=== PATIENT | female | born 1960 | race Caucasian/White ===

== ENCOUNTER → 2019-06-26 | Emergency (ER) | payer MEDICARE, MEDICAID ==
[~2019-06-26] VITALS: Ht 165.1 cm; Wt 81.6 kg
[~2019-06-26] MED LIST: KETOROLAC TROMETH 30 MG/ML 1ML VIAL IV ONE; SODIUM CHLORIDE 0.9% 1,000 ML IV ONE
[2019-06-26 09:05] VITALS: BP 147/78
[2019-06-26 09:53] LABS: Basophils # (auto) 0.1 10 ^3/uL (0-0.2); Basophils % (auto) 0.8 % (0.0-2.0); Eosinophils # (auto) 0.4 10 ^3/uL (0-0.8); Eosinophils % (auto) 3.8 % (0.0-7.0); Hematocrit 45.3 % (36.0-46.0); Hemoglobin 15.2 g/dL (12.2-16.2); Lymphocytes # (auto) 2.2 10 ^3/uL (0.4-5.4); Lymphocytes % (auto) 21.8 % (10.0-50.0); Mean Corpuscular Hemoglobin 31.1 pg (28.0-32.0); Mean Corpuscular Hgb Conc. 33.5 g/dL (32.0-36.0); Mean Corpuscular Volume 92.8 fL (80.0-100.0); Monocytes # (auto) 0.7 10 ^3/uL (0-1.3); Monocytes % (auto) 7.2 % (0.0-12.0); Neutrophils # (auto) 6.6 10 ^3/uL (1.6-8.6); Neutrophils % (auto) 66.4 % (37.0-80.0); Platelet Count (auto) 251 10^3/uL (140-450); Red Blood Cells 4.88 10^6/uL (4.0-5.20); Red Cell Distribution Width 13.6 % (11.8-14.3); White Blood Cell 9.9 10^3/uL (4.4-10.8)
[2019-06-26 10:05] LABS: Albumin 3.5 g/dL (3.4-5.0); Calcium 9.1 mg/dL (8.5-10.1); Potassium 3.9 mmol/L (3.5-5.1)
[2019-06-26 10:09] LABS: BUN/Creatinine Ratio 22.5; Bilirubin, Total 0.4 mg/dL (0.2-1.0); Total Protein 7.9 g/dL (6.4-8.2)
[2019-06-26 10:29] LABS: Urine Bacteria NONE SEEN /hpf (None Seen); Urine Blood Negative /uL (Negative); Urine Specific Gravity 1.023 (1.001-1.035); Urine WBC 1 /hpf (0 - 5)
== END | disposition home or self-care (01) ==
LOC: ER 08:46
DX: I80.3 Phlebitis and thrombophlebitis of lower extremities, unspecified (principal); J44.9 Chronic obstructive pulmonary disease, unspecified; I25.2 Old myocardial infarction; F17.210 Nicotine dependence, cigarettes, uncomplicated; Z90.49 Acquired absence of other specified parts of digestive tract; Z90.710 Acquired absence of both cervix and uterus
CPT/HCPCS: 36415; 71046; 80053; 81001; 83735; 85025; 93005; 93971; 96374; 99285; J1885

== ENCOUNTER 2022-01-28 04:01 | Inpatient (IN) | payer OTHER, MEDICAID ==
[~2022-01-28] VITALS: Ht 165.1 cm; Wt 86.1 kg
[2022-01-28] MEDS ORDERED: NITROGLYCERIN 0.4 MG SL TAB SL ONE ×2 (04:15→05:00)
[2022-01-28] MEDS ORDERED: SODIUM CHLORIDE 0.9% 1,000 ML IV ONE (04:15)
[2022-01-28] MEDS ORDERED: HEPARIN SODIUM (PORCINE) 5000 UNITS/ML 1ML VIAL IV ONE (04:30)
[2022-01-28] MEDS ORDERED: CLOPIDOGREL BISULFATE 75 MG TAB PO ONE (04:30)
[2022-01-28] MEDS ORDERED: ATROPINE SULF 1 MG/10ml SYR IV ONE (04:30)
[2022-01-28 04:39] LABS: Basophils # (auto) 0.1 10 ^3/uL (0-0.2); Basophils % (auto) 0.8 % (0.0-2.0); Eosinophils # (auto) 0.7 10 ^3/uL (0-0.8); Eosinophils % (auto) 4.9 % (0.0-7.0); Hematocrit 46.7 % (36.0-46.0); Hemoglobin 15.2 g/dL (12.2-16.2); Lymphocytes # (auto) 6.2 10 ^3/uL (0.4-5.4); Lymphocytes % (auto) 45.1 % (10.0-50.0); Mean Corpuscular Hgb Conc. 32.4 g/dL (32.0-36.0); Mean Corpuscular Volume 92.4 fL (80.0-100.0); Monocytes # (auto) 1.1 10 ^3/uL (0-1.3); Monocytes % (auto) 8.2 % (0.0-12.0); Neutrophils # (auto) 5.6 10 ^3/uL (1.6-8.6); Red Blood Cells 5.06 10^6/uL (4.0-5.20); Red Cell Distribution Width 13.6 % (11.8-14.3); White Blood Cell 13.7 10^3/uL (4.4-10.8)
[2022-01-28] MEDS ORDERED: MORPHINE SULFATE INJ 2 MG/ml SYRG ONE (04:39)
[2022-01-28] MEDS ORDERED: ONDANSETRON HCL 4 MG/2 ML VIAL ONE (04:39)
[2022-01-28] MEDS ORDERED: ONDANSETRON HCL 4 MG/2 ML VIAL IV ONE (04:45)
[2022-01-28] MEDS ORDERED: MORPHINE SULFATE INJ 2 MG/ml SYRG IV ONE (04:45)
[2022-01-28 04:59] LABS: Albumin 3.6 g/dL (3.4-5.0); Calcium 9.3 mg/dL (8.5-10.1)
[2022-01-28 05:03] LABS: BUN/Creatinine Ratio 18.4; Bilirubin, Total 0.4 mg/dL (0.2-1.0); Total Protein 7.7 g/dL (6.4-8.2)
[2022-01-28] MEDS ORDERED: LIDOCAINE 2%HCL (LOCAL ANESTH.) INJ 10ml MDV ONE (05:07)
[2022-01-28] MEDS ORDERED: IOHEXOL 350 MG/ML 100ML IJ ONE ×3 (05:07→06:09)
[2022-01-28] MEDS ORDERED: fentaNYL CITRATE 100 MCG/2 ML VL ONE (05:21)
[2022-01-28] MEDS ORDERED: ANGIOMAX 250 MG VIAL IV ONE (05:21)
[2022-01-28] MEDS ORDERED: SODIUM CHL 0.9% 50 ML ONE (05:21)
[2022-01-28] MEDS ORDERED: MIDAZOLAM HCL 2MG/2ML 2ml VIAL (1mg/ml) ONE ×2 (05:21→06:05)
[2022-01-28 05:23] LABS: INR 1.09 (0.9-1.15)
[2022-01-28] MEDS ORDERED: VERAPAMIL 2.5MG/ML INJ 2ML VIAL IV ONE (05:23)
[2022-01-28 05:42] LABS: Partial Thromboplastin Time 70.9 sec (24.6-33.4)
[2022-01-28] MEDS ORDERED: ATROPINE SULF 1 MG/10ml SYR ONE (05:47)
[2022-01-28] MEDS ORDERED: NITROGLYCERIN 0.4 MG SL TAB SL PRN (07:00)
[2022-01-28] MEDS ORDERED: MORPHINE SULFATE INJ 2 MG/ml SYRG IV PRN (07:00)
[2022-01-28] MEDS ORDERED: ALPRAZolam 0.25 MG TAB PO PRN ×2 (07:00→14:15)
[2022-01-28] MEDS ORDERED: SOD CHL 0.45% 1,000 ML IV ONE (07:00)
[2022-01-28] MEDS ORDERED: ACETAMINOPHEN 500 MG TAB PO PRN (07:00)
[2022-01-28 08:44] VITALS: BP 101/57
[2022-01-28 09:28] LABS: Magnesium 2.4 mg/dL (1.6-2.6)
[2022-01-28 09:30] VITALS: BP 101/57
[2022-01-28] MEDS ORDERED: FAMOTIDINE 20 MG TAB PO SCH (10:00)
[2022-01-28] MEDS: LISINOPRIL 5 MG TAB PO SCH (11:24)
[2022-01-28] MEDS: CARVEDILOL 3.125 MG TAB PO SCH ×2 (11:25→22:08)
[2022-01-28] MEDS: ASPirin 81 mg TAB PO SCH (11:25)
[2022-01-28] MEDS: ATORVASTATIN 20 MG TAB PO SCH (11:26)
[2022-01-28] MEDS: CLOPIDOGREL BISULFATE 75 MG TAB PO SCH (11:27)
[2022-01-28 12:55] VITALS: BP 117/48
[2022-01-28] MEDS ORDERED: HYDROcodone-ACET 5/325MG TAB PO PRN (14:15)
[2022-01-28] MEDS ORDERED: MORPHINE SULF 15mg ER tab PO ONE (14:15)
[2022-01-28] MEDS ORDERED: hydrOXYzine 25 MG TAB or CAP PO PRN (14:15)
[2022-01-28] MEDS ORDERED: NICOTINE 14 MG/24HR TOPICAL PATCH TD ONE (14:30)
[2022-01-28 17:00] VITALS: BP 159/49
[2022-01-28 17:24] LABS: Urine Bacteria FEW /hpf (None Seen); Urine Blood Negative /uL (Negative); Urine Mucus FEW (None Seen); Urine WBC 3 /hpf (0 - 5)
[2022-01-28] MEDS ORDERED: GABAPENTIN 400 MG CAP PO SCH (18:00)
[2022-01-28 22:00] VITALS: BP 122/60
[2022-01-28] MEDS: MORPHINE SULF 15mg ER tab PO SCH (22:39)
[2022-01-29 05:00] VITALS: BP 98/60
[2022-01-29 06:27] LABS: Basophils # (auto) 0 10 ^3/uL (0-0.2); Basophils % (auto) 0.5 % (0.0-2.0); Eosinophils # (auto) 0.2 10 ^3/uL (0-0.8); Eosinophils % (auto) 2.2 % (0.0-7.0); Hematocrit 40.3 % (36.0-46.0); Hemoglobin 13.9 g/dL (12.2-16.2); Lymphocytes % (auto) 35.8 % (10.0-50.0); Mean Corpuscular Hemoglobin 31.3 pg (28.0-32.0); Mean Corpuscular Hgb Conc. 34.5 g/dL (32.0-36.0); Mean Corpuscular Volume 90.7 fL (80.0-100.0); Monocytes # (auto) 0.8 10 ^3/uL (0-1.3); Monocytes % (auto) 9.5 % (0.0-12.0); Neutrophils # (auto) 4.3 10 ^3/uL (1.6-8.6); Red Blood Cells 4.44 10^6/uL (4.0-5.20); Red Cell Distribution Width 13.5 % (11.8-14.3); White Blood Cell 8.3 10^3/uL (4.4-10.8)
[2022-01-29 06:41] LABS: Calcium 8.8 mg/dL (8.5-10.1); Potassium 4.4 mmol/L (3.5-5.1)
[2022-01-29 08:00] VITALS: BP 104/59
[2022-01-29 09:00] VITALS: BP 104/59
[2022-01-29] MEDS ORDERED: DULoxetine HCL 30 MG CAP PO SCH (10:00)
[2022-01-29] MEDS ORDERED: PANTOPRAZOLE 40 MG TAB PO SCH (10:00)
[2022-01-29] MEDS ORDERED: NICOTINE 14 MG/24HR TOPICAL PATCH TD SCH (10:00)
[2022-01-29] MEDS: MORPHINE SULF 15mg ER tab PO SCH (10:01)
[2022-01-29] MEDS: ATORVASTATIN 20 MG TAB PO SCH (10:01)
[2022-01-29] MEDS: CARVEDILOL 3.125 MG TAB PO SCH (10:01)
[2022-01-29] MEDS: ASPirin 81 mg TAB PO SCH (10:01)
[2022-01-29] MEDS: CLOPIDOGREL BISULFATE 75 MG TAB PO SCH (10:02)
[2022-01-29] MEDS: LISINOPRIL 5 MG TAB PO SCH (10:02)
[2022-01-29 12:55] VITALS: BP 111/62
[2022-01-29] MEDS ORDERED: NIC21P TOP (15:15)
[2022-01-29] MEDS ORDERED: CLOP75TA70 PO (15:15)
[2022-01-29] MEDS ORDERED: ASPI-325 PO (15:15)
[2022-01-29] MEDS ORDERED: CAR3125T PO (15:15)
[2022-01-29 15:40] VITALS: BP 104/59
[2022-01-29 17:00] VITALS: BP 111/66
[2022-01-31 19:09] LABS: Hepatitis C Antibody Negative (Negative)
== END 2022-01-29 17:02 | disposition home or self-care (01) | DRG 246 ==
LOC: EDSEX 04:01 → ER 04:01 → EDBD 04:01 → TELE 07:04 → TELE-WESTW 08:36
PROVIDERS: ADMIT Internal Medicine; ATTEND Internal Medicine
PROC: 4A023N7 Measurement of Cardiac Sampling and Pressure, Left Heart, Percutaneous Approach (ICD-10-PCS; principal; 2022-01-28)
PROC: 027136Z Dilation of Coronary Artery, Two Arteries with Three Drug-eluting Intraluminal Devices, Percutaneous Approach (ICD-10-PCS; 2022-01-28)
PROC: B2111ZZ Fluoroscopy of Multiple Coronary Arteries using Low Osmolar Contrast (ICD-10-PCS; 2022-01-28)
PROC: B2151ZZ Fluoroscopy of Left Heart using Low Osmolar Contrast (ICD-10-PCS; 2022-01-28)
PROC: B240ZZ3 Ultrasonography of Single Coronary Artery, Intravascular (ICD-10-PCS; 2022-01-28)
DX: I21.19 ST elevation (STEMI) myocardial infarction involving other coronary artery of inferior wall (principal); I50.31 Acute diastolic (congestive) heart failure; Z20.822 Contact with and (suspected) exposure to COVID-19; E66.9 Obesity, unspecified; E78.5 Hyperlipidemia, unspecified; F32.A Depression, unspecified; F41.9 Anxiety disorder, unspecified; G89.29 Other chronic pain; I10 Essential (primary) hypertension; I25.10 Atherosclerotic heart disease of native coronary artery without angina pectoris; J44.9 Chronic obstructive pulmonary disease, unspecified; Z68.31 Body mass index [BMI] 31.0-31.9, adult; Z79.01 Long term (current) use of anticoagulants; Z79.02 Long term (current) use of antithrombotics/antiplatelets; Z79.82 Long term (current) use of aspirin; Z79.899 Other long term (current) drug therapy; Z82.49 Family history of ischemic heart disease and other diseases of the circulatory system; Z86.718 Personal history of other venous thrombosis and embolism; Z90.49 Acquired absence of other specified parts of digestive tract; Z90.710 Acquired absence of both cervix and uterus; Z95.5 Presence of coronary angioplasty implant and graft; Z72.0 Tobacco use
CPT/HCPCS: 36415; 71045; 80048; 80053; 80061; 81001; 83036; 83735; 83880; 84443; 84484; 85025; 85610; 85730; 86803; 87340; 87426; 92928; 92929; 92978; 93005; 93306; 93458; 96361; 96374; 96375; 99152; 99153; C1874; C1887; G0378; J2001; J2250; J2405